=== PATIENT | female | born 1965 | race Caucasian/White ===

== ENCOUNTER 2021-03-21 02:22 | Inpatient (IN) ==
[2021-03-21] MEDS ORDERED: Ondansetron 4 MG/2 ML VIAL IVP PRN ×3 (05:34→13:40)
[2021-03-21] MEDS ORDERED: Naloxone 0.4 MG/ML INJ IVP PRN ×4 (05:34→13:40)
[2021-03-21] MEDS ORDERED: Ringers Solution, Lactated 1,000 ML IVC SCH ×2 (05:45→13:40)
[2021-03-21] MEDS ORDERED: *HR* Heparin 5,000 UNIT/ML VIAL SQ SCH (06:00)
[2021-03-21 07:34] LABS: Adenovirus Not Detected (Not Detect); Bordetella Pertussis Not Detected (Not Detect); Chlamydophila pneumoniae Not Detected (Not Detect); Coronavirus 229E Not Detected (Not Detect); Coronavirus HKU1 Not Detected (Not Detect); Coronavirus NL63 Not Detected (Not Detect); Coronavirus OC43 Not Detected (Not Detect); Human Metapneumovirus Not Detected (Not Detect); Human Rhinovirus/Enterovirus Not Detected (Not Detect); Influenza A Subtype 2009 H1 Not Detected (Not Detect); Influenza B Not Detected (Not Detect); Mycoplasma pneumoniae Not Detected (Not Detect); Parainfluenza Virus 1 Not Detected (Not Detect); Parainfluenza Virus 2 Not Detected (Not Detect); Parainfluenza Virus 3 Not Detected (Not Detect); Parainfluenza Virus 4 Not Detected (Not Detect); Respiratory Syncytial Virus Not Detected (Not Detect); SARS-CoV-2 Not Detected (Not Detect)
[2021-03-21 07:46] LABS: Basophils # 0.1 K/mcL (0.0-0.2); Basophils % 0.5 %; Eosinophils % 0.1 %; Hematocrit 40.8 % (35.3-44.9); Immature Granulocytes % 0.9 % (0-4); Lymphocytes # 1.7 K/mcL (0.6-4.6); Lymphocytes % 7.9 %; Mean Corpuscular HGB Conc 31.9 g/dL (31.6-35.5); Mean Corpuscular Hemoglobin 31.7 pg (28.0-33.3); Mean Corpuscular Volume 99.5 fL (83.0-100.0); Mean Platelet Volume 10.5 fL (9.4-12.4); Monocytes # 1.6 K/mcL (0.0-1.3); Monocytes % 7.7 %; Neutrophils # 17.4 K/mcL (1.6-8.9); Platelet Count 230 K/mcL (140-400); Red Cell Distribution Width 13.2 % (11.5-14.5); Segmented Neutrophils % 82.9 %
[2021-03-21] MEDS ORDERED: Azithromycin 500 MG in 0.9 % Sodium Chloride 250 ML IVPB SCH (08:00)
[2021-03-21] MEDS ORDERED: *HR* FentaNYL (PF) 100 MCG/2 ML VIAL ONE ×3 (08:23→12:42)
[2021-03-21] MEDS ORDERED: *HR* Propofol 200 MG/20 ML VIAL IVP ONE (08:23)
[2021-03-21 08:26] LABS: Alanine Aminotransferase 19 Units/L (7-52); Albumin 3.7 g/dL (3.5-5.7); Albumin/Globulin Ratio 1.3 (1.1-2.2); Alkaline Phosphatase 88 Units/L (34-104); Aspartate Amino Transferase 24 Units/L (13-39); BUN/Creatinine Ratio 12 (6-26); Bilirubin,Total 0.4 mg/dL (0.3-1.0); Blood Urea Nitrogen 12 mg/dL (6-20); Calcium 9.1 mg/dL (8.6-10.3); Carbon Dioxide 22 mEq/L (23-29); Chloride 110 mEq/L (98-107); Globulin 2.9 g/dL (2.4-3.5); Glucose 143 mg/dL (70-105); Osmolality,Calculated 292 (280-300); Sodium 140 mEq/L (136-145); Total Protein 6.6 g/dL (6.4-8.9); eGFR For African Americans > 60 (> 60); eGFR For Non-African Americans 58 (> 60)
[2021-03-21] MEDS ORDERED: cefTRIAXone 1,000 MG in 0.9 % Sodium Chloride Mini Bag 100 ML IVPB SCH (09:00)
[2021-03-21] MEDS ORDERED: Morphine Sulfate 2 MG/ML SYRINGE IVP PRN (09:06)
[2021-03-21] MEDS ORDERED: Ertapenem 1,000 MG in 0.9 % Sodium Chloride Mini Bag 100 ML IVPB SCH (10:00)
[2021-03-21] MEDS ORDERED: Vancomycin 1 EACH in 0.9 % Sodium Chloride 250 ML IVPB PRN ×2 (10:00→13:40)
[2021-03-21] MEDS ORDERED: Isovue-300 50ML VIAL ONE (11:12)
[2021-03-21] MEDS ORDERED: *HR* Midazolam HCl 2 MG/2 ML VIAL ONE (11:22)
[2021-03-21] MEDS ORDERED: Ondansetron 4 MG/2 ML VIAL ONE (12:13)
[2021-03-21] MEDS ORDERED: *HR* HYDROmorphone PF 0.5 MG/0.5 ML SYRINGE IVP PRN (12:37)
[2021-03-21] MEDS: *HR* FentaNYL (PF) 100 MCG/2 ML VIAL IVP PRN ×4 (12:43→12:55)
[2021-03-21] MEDS: *HR* Heparin 5,000 UNIT/ML VIAL SQ SCH ×2 (14:27→20:38)
[2021-03-21] MEDS: Morphine Sulfate 2 MG/ML SYRINGE IVP PRN (15:34)
[2021-03-21] MEDS: Vancomycin 2,000 MG/520 ML IV.SOLN IVPB SCH (16:34)
[2021-03-21] MEDS: Lactobacillus 1 EACH CAP.SPRINK PO SCH (20:38)
[2021-03-21] MEDS ORDERED: Lactobacillus 1 EACH CAP.SPRINK PO SCH (21:00)
[2021-03-22] MEDS: Vancomycin 2,000 MG/520 ML IV.SOLN IVPB SCH ×2 (03:41→16:31)
[2021-03-22] MEDS: *HR* Heparin 5,000 UNIT/ML VIAL SQ SCH ×3 (05:52→21:16)
[2021-03-22 06:49] LABS: Basophils # 0.1 K/mcL (0.0-0.2); Basophils % 0.4 %; Hematocrit 38.9 % (35.3-44.9); Hemoglobin 12.6 g/dL (11.5-15.4); Immature Granulocytes % 0.9 % (0-4); Lymphocytes # 1.4 K/mcL (0.6-4.6); Lymphocytes % 10.2 %; Mean Corpuscular HGB Conc 32.4 g/dL (31.6-35.5); Mean Corpuscular Hemoglobin 32.5 pg (28.0-33.3); Mean Corpuscular Volume 100.3 fL (83.0-100.0); Mean Platelet Volume 10.4 fL (9.4-12.4); Monocytes % 7.1 %; Neutrophils # 11.3 K/mcL (1.6-8.9); Platelet Count 210 K/mcL (140-400); Red Blood Count 3.88 M/mcL (3.82-4.97); Red Cell Distribution Width 13.3 % (11.5-14.5); Segmented Neutrophils % 81.4 %; White Blood Count 13.9 K/mcL (4.3-11.1)
[2021-03-22 07:02] LABS: Alanine Aminotransferase 14 Units/L (7-52); Albumin 3.5 g/dL (3.5-5.7); Albumin/Globulin Ratio 1.1 (1.1-2.2); Alkaline Phosphatase 76 Units/L (34-104); Aspartate Amino Transferase 14 Units/L (13-39); BUN/Creatinine Ratio 15 (6-26); Bilirubin,Direct 0.1 mg/dL (0.0-0.2); Bilirubin,Indirect 0.3 mg/dL (0.0-1.0); Bilirubin,Total 0.4 mg/dL (0.3-1.0); Blood Urea Nitrogen 14 mg/dL (6-20); Calcium 9.3 mg/dL (8.6-10.3); Carbon Dioxide 25 mEq/L (23-29); Chloride 110 mEq/L (98-107); Globulin 3.2 g/dL (2.4-3.5); Glucose 155 mg/dL (70-105); Magnesium 1.8 mg/dL (1.6-2.6); Osmolality,Calculated 296 (280-300); Potassium 4.1 mEq/L (3.5-5.1); Sodium 141 mEq/L (136-145); Total Protein 6.7 g/dL (6.4-8.9); eGFR For African Americans > 60 (> 60); eGFR For Non-African Americans 60 (> 60)
[2021-03-22] MEDS: Lactobacillus 1 EACH CAP.SPRINK PO SCH ×2 (07:57→21:13)
[2021-03-22] MEDS: Ertapenem 1,000 MG in 0.9 % Sodium Chloride Mini Bag 100 ML IVPB SCH (08:40)
[2021-03-22] MEDS: Morphine Sulfate 2 MG/ML SYRINGE IVP PRN (08:42)
[2021-03-22 09:08] LABS: Bilirubin,Urine Negative (Negative); Blood,Urine Large (Negative); Clarity,Urine Turbid (Clear); Color,Urine Light-Red (Yellow); Glucose,Urine (UA) Normal (Normal); Ketones,Urine Negative (Negative); Leukocyte Esterase,Urine Large (Negative); Mucus,Urine Few per lpf (None-Few); Nitrite,Urine Negative (Negative); Protein,Urine 50 mg/dL (Neg-Trace); RBC,Urine TNTC per hpf (0-3); Specific Gravity,Urine 1.009 (1.010-1.025); Squamous Epithelial Cell,Urine Few per hpf (None-Few); Urobilinogen,Urine Normal (Normal); WBC,Urine 50-100 per hpf (0-3)
[2021-03-22] MEDS: tiZANidine 4 MG TABLET PO SCH ×2 (14:17→21:14)
[2021-03-22] MEDS: levETIRAcetam 250 MG TABLET PO SCH (21:13)
[2021-03-23 03:13] LABS: Basophils # 0.1 K/mcL (0.0-0.2); Basophils % 0.7 %; Eosinophils # 0.2 K/mcL (0.0-0.6); Eosinophils % 1.5 %; Hematocrit 36.7 % (35.3-44.9); Hemoglobin 11.9 g/dL (11.5-15.4); Immature Granulocytes % 0.5 % (0-4); Lymphocytes # 3.3 K/mcL (0.6-4.6); Lymphocytes % 27.3 %; Mean Corpuscular HGB Conc 32.4 g/dL (31.6-35.5); Mean Corpuscular Hemoglobin 32.8 pg (28.0-33.3); Mean Corpuscular Volume 101.1 fL (83.0-100.0); Mean Platelet Volume 10.2 fL (9.4-12.4); Monocytes # 1.1 K/mcL (0.0-1.3); Monocytes % 9.4 %; Neutrophils # 7.3 K/mcL (1.6-8.9); Platelet Count 207 K/mcL (140-400); Red Blood Count 3.63 M/mcL (3.82-4.97); Red Cell Distribution Width 13.4 % (11.5-14.5); Segmented Neutrophils % 60.6 %; White Blood Count 12.1 K/mcL (4.3-11.1)
[2021-03-23 03:36] LABS: BUN/Creatinine Ratio 21 (6-26); Blood Urea Nitrogen 20 mg/dL (6-20); Calcium 9.2 mg/dL (8.6-10.3); Carbon Dioxide 22 mEq/L (23-29); Chloride 110 mEq/L (98-107); Glucose 131 mg/dL (70-105); Magnesium 1.8 mg/dL (1.6-2.6); Osmolality,Calculated 290 (280-300); Potassium 3.8 mEq/L (3.5-5.1); Sodium 138 mEq/L (136-145); eGFR For African Americans > 60 (> 60); eGFR For Non-African Americans 60 (> 60)
[2021-03-23] MEDS: Vancomycin 2,000 MG/520 ML IV.SOLN IVPB SCH (03:49)
[2021-03-23] MEDS: *HR* Heparin 5,000 UNIT/ML VIAL SQ SCH ×3 (05:38→20:46)
[2021-03-23] MEDS: Morphine Sulfate 2 MG/ML SYRINGE IVP PRN ×3 (05:47→20:54)
[2021-03-23] MEDS: Lactobacillus 1 EACH CAP.SPRINK PO SCH ×2 (10:32→20:45)
[2021-03-23] MEDS: Loratadine 10 MG TABLET PO SCH (10:32)
[2021-03-23] MEDS: amLODIPine 5 MG TABLET PO SCH (10:32)
[2021-03-23] MEDS: levETIRAcetam 250 MG TABLET PO SCH ×2 (10:32→20:45)
[2021-03-23] MEDS: Ertapenem 1,000 MG in 0.9 % Sodium Chloride Mini Bag 100 ML IVPB SCH (10:33)
[2021-03-23] MEDS: tiZANidine 4 MG TABLET PO SCH ×3 (10:33→20:45)
[2021-03-24 01:55] LABS: Basophils # 0.1 K/mcL (0.0-0.2); Basophils % 0.6 %; Eosinophils # 0.3 K/mcL (0.0-0.6); Eosinophils % 3.3 %; Hematocrit 37.3 % (35.3-44.9); Hemoglobin 11.9 g/dL (11.5-15.4); Immature Granulocytes % 0.5 % (0-4); Lymphocytes # 3.9 K/mcL (0.6-4.6); Lymphocytes % 39.6 %; Mean Corpuscular HGB Conc 31.9 g/dL (31.6-35.5); Mean Corpuscular Hemoglobin 32.3 pg (28.0-33.3); Mean Corpuscular Volume 101.4 fL (83.0-100.0); Mean Platelet Volume 10.3 fL (9.4-12.4); Neutrophils # 4.5 K/mcL (1.6-8.9); Platelet Count 194 K/mcL (140-400); Red Blood Count 3.68 M/mcL (3.82-4.97); Red Cell Distribution Width 13.1 % (11.5-14.5); White Blood Count 9.8 K/mcL (4.3-11.1)
[2021-03-24 02:02] LABS: BUN/Creatinine Ratio 20 (6-26); Blood Urea Nitrogen 20 mg/dL (6-20); Calcium 8.9 mg/dL (8.6-10.3); Carbon Dioxide 23 mEq/L (23-29); Chloride 109 mEq/L (98-107); Glucose 91 mg/dL (70-105); Magnesium 1.8 mg/dL (1.6-2.6); Osmolality,Calculated 292 (280-300); Potassium 3.9 mEq/L (3.5-5.1); Sodium 140 mEq/L (136-145); eGFR For African Americans > 60 (> 60); eGFR For Non-African Americans 58 (> 60)
[2021-03-24] MEDS: *HR* Heparin 5,000 UNIT/ML VIAL SQ SCH (05:49)
[2021-03-24] MEDS: tiZANidine 4 MG TABLET PO SCH ×3 (10:14→20:29)
[2021-03-24] MEDS: Morphine Sulfate 2 MG/ML SYRINGE IVP PRN (10:14)
[2021-03-24] MEDS: Lactobacillus 1 EACH CAP.SPRINK PO SCH ×2 (10:14→20:28)
[2021-03-24] MEDS: Loratadine 10 MG TABLET PO SCH (10:15)
[2021-03-24] MEDS: levETIRAcetam 250 MG TABLET PO SCH ×2 (10:15→20:29)
[2021-03-24] MEDS: Ertapenem 1,000 MG in 0.9 % Sodium Chloride Mini Bag 100 ML IVPB SCH (10:15)
[2021-03-24] MEDS: amLODIPine 5 MG TABLET PO SCH (10:15)
[2021-03-24] MEDS: *HR* OxyCODONE/APAP 7.5/325 TABLET PO PRN (13:55)
[2021-03-24] MEDS: *HR* Rivaroxaban 10 MG TABLET PO SCH (17:20)
[2021-03-25 06:16] LABS: Basophils # 0.1 K/mcL (0.0-0.2); Basophils % 0.6 %; Eosinophils # 0.5 K/mcL (0.0-0.6); Eosinophils % 4.5 %; Hematocrit 38.5 % (35.3-44.9); Hemoglobin 12.6 g/dL (11.5-15.4); Immature Granulocytes % 0.8 % (0-4); Lymphocytes # 2.8 K/mcL (0.6-4.6); Lymphocytes % 28.3 %; Mean Corpuscular HGB Conc 32.7 g/dL (31.6-35.5); Mean Corpuscular Volume 100.8 fL (83.0-100.0); Mean Platelet Volume 10.3 fL (9.4-12.4); Neutrophils # 5.6 K/mcL (1.6-8.9); Platelet Count 222 K/mcL (140-400); Red Blood Count 3.82 M/mcL (3.82-4.97); Segmented Neutrophils % 55.8 %
[2021-03-25 06:31] LABS: BUN/Creatinine Ratio 21 (6-26); Blood Urea Nitrogen 21 mg/dL (6-20); Calcium 9.3 mg/dL (8.6-10.3); Carbon Dioxide 24 mEq/L (23-29); Chloride 109 mEq/L (98-107); Glucose 98 mg/dL (70-105); Magnesium 1.9 mg/dL (1.6-2.6); Osmolality,Calculated 293 (280-300); Sodium 140 mEq/L (136-145); eGFR For African Americans > 60 (> 60); eGFR For Non-African Americans 56 (> 60)
[2021-03-25] MEDS: tiZANidine 4 MG TABLET PO SCH ×3 (09:14→20:32)
[2021-03-25] MEDS: levETIRAcetam 250 MG TABLET PO SCH ×2 (09:14→20:32)
[2021-03-25] MEDS: amLODIPine 5 MG TABLET PO SCH (09:14)
[2021-03-25] MEDS: Loratadine 10 MG TABLET PO SCH (09:14)
[2021-03-25] MEDS: Ertapenem 1,000 MG in 0.9 % Sodium Chloride Mini Bag 100 ML IVPB SCH (09:14)
[2021-03-25] MEDS: Lactobacillus 1 EACH CAP.SPRINK PO SCH ×2 (09:14→20:32)
[2021-03-25] MEDS: *HR* OxyCODONE/APAP 7.5/325 TABLET PO PRN ×3 (09:28→22:35)
[2021-03-25] MEDS: *HR* Rivaroxaban 10 MG TABLET PO SCH (15:41)
[2021-03-26 01:20] LABS: Basophils # 0.1 K/mcL (0.0-0.2); Basophils % 0.9 %; Eosinophils # 0.6 K/mcL (0.0-0.6); Eosinophils % 5.1 %; Hematocrit 39.6 % (35.3-44.9); Hemoglobin 12.6 g/dL (11.5-15.4); Lymphocytes # 3.2 K/mcL (0.6-4.6); Lymphocytes % 28.6 %; Mean Corpuscular HGB Conc 31.8 g/dL (31.6-35.5); Mean Corpuscular Hemoglobin 32.1 pg (28.0-33.3); Mean Corpuscular Volume 100.8 fL (83.0-100.0); Mean Platelet Volume 10.3 fL (9.4-12.4); Monocytes % 8.5 %; Neutrophils # 6.2 K/mcL (1.6-8.9); Platelet Count 242 K/mcL (140-400); Red Blood Count 3.93 M/mcL (3.82-4.97); Red Cell Distribution Width 13.1 % (11.5-14.5); Segmented Neutrophils % 55.9 %; White Blood Count 11.1 K/mcL (4.3-11.1)
[2021-03-26 01:39] LABS: BUN/Creatinine Ratio 23 (6-26); Blood Urea Nitrogen 22 mg/dL (6-20); Calcium 9.2 mg/dL (8.6-10.3); Carbon Dioxide 24 mEq/L (23-29); Chloride 108 mEq/L (98-107); Glucose 98 mg/dL (70-105); Magnesium 1.9 mg/dL (1.6-2.6); Osmolality,Calculated 291 (280-300); Potassium 3.7 mEq/L (3.5-5.1); Sodium 139 mEq/L (136-145); eGFR For African Americans > 60 (> 60); eGFR For Non-African Americans > 60 (> 60)
[2021-03-26] MEDS: *HR* OxyCODONE/APAP 7.5/325 TABLET PO PRN ×3 (09:52→21:58)
[2021-03-26] MEDS: tiZANidine 4 MG TABLET PO SCH ×3 (09:53→21:58)
[2021-03-26] MEDS: amLODIPine 5 MG TABLET PO SCH (09:54)
[2021-03-26] MEDS: Lactobacillus 1 EACH CAP.SPRINK PO SCH ×2 (09:54→21:58)
[2021-03-26] MEDS: Loratadine 10 MG TABLET PO SCH (09:54)
[2021-03-26] MEDS: levETIRAcetam 250 MG TABLET PO SCH ×2 (09:54→21:58)
[2021-03-26] MEDS: *HR* Rivaroxaban 10 MG TABLET PO SCH (15:49)
[2021-03-27] MEDS: *HR* OxyCODONE/APAP 7.5/325 TABLET PO PRN ×4 (03:02→23:15)
[2021-03-27 06:37] LABS: Basophils # 0.1 K/mcL (0.0-0.2); Basophils % 0.9 %; Eosinophils # 0.7 K/mcL (0.0-0.6); Eosinophils % 5.7 %; Hematocrit 38.8 % (35.3-44.9); Hemoglobin 12.6 g/dL (11.5-15.4); Immature Granulocytes % 1.2 % (0-4); Lymphocytes # 3.3 K/mcL (0.6-4.6); Lymphocytes % 27.9 %; Mean Corpuscular HGB Conc 32.5 g/dL (31.6-35.5); Mean Corpuscular Volume 101.6 fL (83.0-100.0); Mean Platelet Volume 10.4 fL (9.4-12.4); Monocytes % 8.9 %; Neutrophils # 6.5 K/mcL (1.6-8.9); Platelet Count 256 K/mcL (140-400); Red Blood Count 3.82 M/mcL (3.82-4.97); Red Cell Distribution Width 13.2 % (11.5-14.5); Segmented Neutrophils % 55.4 %; White Blood Count 11.7 K/mcL (4.3-11.1)
[2021-03-27 06:54] LABS: BUN/Creatinine Ratio 23 (6-26); Blood Urea Nitrogen 24 mg/dL (6-20); Calcium 9.4 mg/dL (8.6-10.3); Carbon Dioxide 26 mEq/L (23-29); Chloride 110 mEq/L (98-107); Glucose 91 mg/dL (70-105); Osmolality,Calculated 296 (280-300); Sodium 141 mEq/L (136-145); eGFR For African Americans > 60 (> 60); eGFR For Non-African Americans 53 (> 60)
[2021-03-27] MEDS: Loratadine 10 MG TABLET PO SCH (10:06)
[2021-03-27] MEDS: Lactobacillus 1 EACH CAP.SPRINK PO SCH ×2 (10:07→19:37)
[2021-03-27] MEDS: levETIRAcetam 250 MG TABLET PO SCH ×2 (10:07→19:37)
[2021-03-27] MEDS: amLODIPine 5 MG TABLET PO SCH (10:09)
[2021-03-27] MEDS: tiZANidine 4 MG TABLET PO SCH ×3 (10:10→19:36)
[2021-03-27] MEDS: *HR* Rivaroxaban 10 MG TABLET PO SCH (17:39)
[2021-03-28] MEDS: levETIRAcetam 250 MG TABLET PO SCH ×2 (10:11→21:00)
[2021-03-28] MEDS: tiZANidine 4 MG TABLET PO SCH ×3 (10:11→21:00)
[2021-03-28] MEDS: Loratadine 10 MG TABLET PO SCH (10:11)
[2021-03-28] MEDS: Lactobacillus 1 EACH CAP.SPRINK PO SCH ×2 (10:11→21:00)
[2021-03-28] MEDS: amLODIPine 5 MG TABLET PO SCH (10:12)
[2021-03-28] MEDS: *HR* OxyCODONE/APAP 7.5/325 TABLET PO PRN ×4 (10:14→23:16)
[2021-03-28 11:40] LABS: Hematocrit 39.5 % (35.3-44.9); Hemoglobin 12.3 g/dL (11.5-15.4)
[2021-03-28] MEDS: cefTRIAXone 1,000 MG in 0.9 % Sodium Chloride Mini Bag 100 ML IVPB SCH (19:13)
[2021-03-29 09:22] LABS: Hematocrit 40.7 % (35.3-44.9); Hemoglobin 13.2 g/dL (11.5-15.4)
[2021-03-29] MEDS: Loratadine 10 MG TABLET PO SCH (09:34)
[2021-03-29] MEDS: amLODIPine 5 MG TABLET PO SCH (09:34)
[2021-03-29] MEDS: Lactobacillus 1 EACH CAP.SPRINK PO SCH ×2 (09:34→20:26)
[2021-03-29] MEDS: tiZANidine 4 MG TABLET PO SCH ×3 (09:34→20:26)
[2021-03-29] MEDS: levETIRAcetam 250 MG TABLET PO SCH ×2 (09:35→20:25)
[2021-03-29] MEDS: *HR* OxyCODONE/APAP 7.5/325 TABLET PO PRN ×3 (09:35→20:26)
[2021-03-29] MEDS: cefTRIAXone 1,000 MG in 0.9 % Sodium Chloride Mini Bag 100 ML IVPB SCH (09:44)
[2021-03-29] MEDS: Cefdinir 300 MG CAPSULE PO SCH (20:26)
[2021-03-30 02:51] LABS: Hematocrit 36.7 % (35.3-44.9); Hemoglobin 11.9 g/dL (11.5-15.4)
[2021-03-30] MEDS: levETIRAcetam 250 MG TABLET PO SCH ×2 (09:18→20:13)
[2021-03-30] MEDS: Lactobacillus 1 EACH CAP.SPRINK PO SCH ×2 (09:19→20:14)
[2021-03-30] MEDS: *HR* OxyCODONE/APAP 7.5/325 TABLET PO PRN ×3 (09:19→22:14)
[2021-03-30] MEDS: Loratadine 10 MG TABLET PO SCH (09:19)
[2021-03-30] MEDS: Cefdinir 300 MG CAPSULE PO SCH ×2 (09:19→20:14)
[2021-03-30] MEDS: tiZANidine 4 MG TABLET PO SCH ×3 (09:19→20:14)
[2021-03-30] MEDS: amLODIPine 5 MG TABLET PO SCH (09:19)
[2021-03-30] MEDS: polyethylene glycoL 3350 17 GM POWD.PACK PO SCH (17:09)
[2021-03-31 07:27] LABS: Hematocrit 37.7 % (35.3-44.9); Hemoglobin 12.1 g/dL (11.5-15.4)
[2021-03-31] MEDS: levETIRAcetam 250 MG TABLET PO SCH ×2 (07:52→19:47)
[2021-03-31] MEDS: amLODIPine 5 MG TABLET PO SCH (07:52)
[2021-03-31] MEDS: Loratadine 10 MG TABLET PO SCH (07:52)
[2021-03-31] MEDS: Lactobacillus 1 EACH CAP.SPRINK PO SCH ×2 (07:52→19:47)
[2021-03-31] MEDS: tiZANidine 4 MG TABLET PO SCH ×3 (07:53→19:47)
[2021-03-31] MEDS: polyethylene glycoL 3350 17 GM POWD.PACK PO SCH (07:53)
[2021-03-31] MEDS: Cefdinir 300 MG CAPSULE PO SCH ×2 (07:53→19:48)
[2021-03-31] MEDS: *HR* OxyCODONE/APAP 7.5/325 TABLET PO PRN ×2 (12:22→19:48)
[2021-04-01] MEDS: *HR* OxyCODONE/APAP 7.5/325 TABLET PO PRN ×5 (01:19→21:43)
[2021-04-01 03:12] LABS: Hemoglobin 12.4 g/dL (11.5-15.4)
[2021-04-01] MEDS: Lactobacillus 1 EACH CAP.SPRINK PO SCH ×2 (07:59→20:50)
[2021-04-01] MEDS: amLODIPine 5 MG TABLET PO SCH (07:59)
[2021-04-01] MEDS: levETIRAcetam 250 MG TABLET PO SCH ×2 (07:59→20:50)
[2021-04-01] MEDS: Cefdinir 300 MG CAPSULE PO SCH ×2 (07:59→20:50)
[2021-04-01] MEDS: polyethylene glycoL 3350 17 GM POWD.PACK PO SCH (07:59)
[2021-04-01] MEDS: Loratadine 10 MG TABLET PO SCH (07:59)
[2021-04-01] MEDS: tiZANidine 4 MG TABLET PO SCH ×3 (07:59→20:50)
[2021-04-02] MEDS: *HR* OxyCODONE/APAP 7.5/325 TABLET PO PRN ×2 (02:13→09:40)
[2021-04-02 05:56] LABS: Hemoglobin 11.5 g/dL (11.5-15.4)
[2021-04-02 08:10] VITALS: BP 111/69; PULSE 73; TEMP 98.1; O2SAT 93
[2021-04-02] MEDS: tiZANidine 4 MG TABLET PO SCH (09:37)
[2021-04-02] MEDS: Lactobacillus 1 EACH CAP.SPRINK PO SCH (09:37)
[2021-04-02] MEDS: Loratadine 10 MG TABLET PO SCH (09:38)
[2021-04-02] MEDS: levETIRAcetam 250 MG TABLET PO SCH (09:39)
[2021-04-02] MEDS: amLODIPine 5 MG TABLET PO SCH (09:40)
[2021-04-02] MEDS: Cefdinir 300 MG CAPSULE PO SCH (09:40)
[2021-04-02] MEDS: polyethylene glycoL 3350 17 GM POWD.PACK PO SCH (09:41)
== END 2021-04-02 10:04 | disposition home or self-care (01) | DRG 720 ==
LOC: 3BNU → SUATTDRO 05:03
PROVIDERS: ADMIT Student in an Organized Health Care Education/Training Program; ATTEND Registered Nurse